=== PATIENT | female | born 1940 | race Hispanic/Latino ===

== ENCOUNTER 2017-05-03 12:29 | Emergency (ER) | payer MEDICARE, MEDICAID ==
[~2017-05-03] VITALS: Ht 142.2 cm; Wt 64.0 kg
[~2017-05-03 12:29] MED LIST: ACETAMIN500 M1; ACTOS30 MG PO; CIPROFLOXACN500 MG PO; COREG6.25 MG PO; DIABETA5 MG PO; FLAGYL500 MG PO; GLYBURIDE/METFO1 TAB PO; GLYBURIDE5 M1 PO; HYDROCHLORO25 MG/TAB PO; LEVOTHYROXIN100 MCG PO; LISINOPRIL10 MG PO; LISINOPRIL20 M1 PO; LORTAB 5 OR; LORTAB 5/3255 MG PO; LORTAB 7.5; LORTAB 7.5 PO; METFORMIN HCL1000 MG PO; METFORMIN1000 MG PO; METRONIDAZOL500 MG PO; NAPROSYN500 MG PO; PENICILLN VK500 MG OR; PRILOSEC40 MG PO; SIMVASTATIN20 MG PO; SIMVASTATIN40 MG PO; TUMS500 MG; ZESTRIL/PRI20 MG/TAB PO
[2017-05-03 13:36] LABS: HEMATOCRIT 25.3 % (37.0-47.0); HEMOGLOBIN 8.6 g/dl (12.0-16.0); IMMATURE GRANULOCYTES 0.4 % (0.0-1.0); MEAN CELL VOLUME 87.5 fL CALC (80.0-100.0); MEAN CORPUSCULAR HGB 29.8 pG CALC (26.0-32.0); NEUT# 7.07 thou/uL (2.00-7.15); RED BLOOD COUNT 2.89 mill/uL (4.20-5.60); RED CELL DISTRI WIDTH 12.9 % (11.5-15.5)
[2017-05-03] MEDS ORDERED: MIRTAZAPINE15 MG PO (13:42)
[2017-05-03] MEDS ORDERED: MELATONIN10 M3 PO (13:43)
[2017-05-03] MEDS ORDERED: FOLIC ACID1 MG PO (13:44)
[2017-05-03] MEDS ORDERED: LEVOTHYROXIN75 MCG PO (13:45)
[2017-05-03] MEDS ORDERED: FERR SULFATE325 MG PO (13:46)
[2017-05-03] MEDS ORDERED: HYDRALAZINE25 MG PO (13:48)
[2017-05-03] MEDS ORDERED: GLUCOTROL10 MG PO (13:49)
[2017-05-03] MEDS ORDERED: OMEPRAZOLE10 MG PO (13:50)
[2017-05-03 13:56] LABS: ALBUMIN 3.7 g/dL (3.2-5.0); BILIRUBIN, TOTAL 0.4 mg/dL (0.0-1.4); CALCIUM 8.7 mg/dL (8.4-10.2); CREATININE 1.6 mg/dL (0.5-1.0); POTASSIUM 3.9 mmol/l (3.5-5.1); TOTAL PROTEIN 7.4 g/dL (6.3-8.2)
[2017-05-03 14:29] LABS: URINE BILIRUBIN - DIPSTICK NEGATIVE (NEGATIVE); URINE BLOOD DIPSTICK NEGATIVE (NEGATIVE); URINE CLARITY CLEAR; URINE COLOR YELLOW; URINE GLUCOSE - DIPSTICK NEGATIVE (NEGATIVE); URINE KETONE NEGATIVE (NEGATIVE); URINE LEUK ESTERASE TRACE (NEGATIVE); URINE NITRITE - DIPSTICK NEGATIVE (Negative); URINE PH 5.5 (4.5-8.0); URINE PROTEIN - DIPSTICK NEGATIVE (NEG-TRACE); URINE SPECIFIC GRAVITY <=1.005; URINE UROBILINOGEN - DIPSTICK 0.2 E.U./dL (0.2)
[2017-05-03 14:36] VITALS: BP 106/60
== END 2017-05-03 14:47 | disposition home or self-care (01) ==
LOC: ED 12:29
PROVIDERS: Family Medicine
DX: R53.1 Weakness (principal); R50.9 Fever, unspecified; I10 Essential (primary) hypertension; R51 Headache; E11.9 Type 2 diabetes mellitus without complications; Z79.84 Long term (current) use of oral hypoglycemic drugs

== ENCOUNTER 2019-03-15 20:59 | Emergency (ER) | payer MEDICARE, MEDICAID ==
[~2019-03-15] VITALS: Ht 142.2 cm; Wt 74.0 kg
[~2019-03-15 20:59] MED LIST changes: +FERR SULFATE325 MG PO; +FOLIC ACID1 MG PO; +GLUCOTROL10 MG PO; +HYDRALAZINE25 MG PO; +LEVOTHYROXIN75 MCG PO; +MELATONIN10 M3 PO; +MIRTAZAPINE15 MG PO; +OMEPRAZOLE10 MG PO
[2019-03-15 21:06] VITALS: BP 206/110
== END 2019-03-15 21:51 | disposition home or self-care (01) ==
LOC: ED 20:59
DX: L97.219 Non-pressure chronic ulcer of right calf with unspecified severity (principal); I10 Essential (primary) hypertension; E11.9 Type 2 diabetes mellitus without complications

== ENCOUNTER 2019-11-13 | Emergency (ER) | payer MEDICARE, MEDICAID ==
[2019-11-13] MEDS ORDERED: LIPITOR40 M1 PO (15:21)
[2019-11-13] MEDS ORDERED: FLUOXETINE20 MG PO (15:22)
[2019-11-13 15:24] LABS: HEMATOCRIT 31.9 % (37.0-47.0); HEMOGLOBIN 10.5 g/dl (12.0-16.0); IMMATURE GRANULOCYTES 0.6 % (0.0-5.0); MEAN CELL VOLUME 92.2 fL CALC (80.0-100.0); MEAN CORPUSCULAR HGB 30.3 pG CALC (26.0-32.0); MEAN CORPUSCULAR HGB CONC 32.9 g/L CALC (32.0-36.0); NEUT# 7.62 thou/uL (2.00-7.15); RED BLOOD COUNT 3.46 mill/uL (4.20-5.60); RED CELL DISTRI WIDTH 14.3 % (11.5-15.5)
[2019-11-13 15:48] LABS: ALBUMIN 3.6 g/dL (3.2-5.0); ALKALINE PHOSPHATASE 231 u/l (38-126); ANION GAP 11 (6-22 (CALC)); BILIRUBIN, TOTAL 0.5 mg/dL (0.0-1.4); BUN 46 mg/dL (8-23); BUN/CREATININE RATIO 34 (12-20 (CALC)); CARBON DIOXIDE 22 mmol/l (22-30); CHLORIDE 106 mmol/l (95-108); CREATININE 1.4 mg/dL (0.5-1.0); GFR 36 ML/MIN (>=60 (CALC)); GFR FOR AFR.AMER. 44 ML/MIN (>=60 (CALC)); SGOT/AST 22 u/l (9-36); SODIUM 134 mmol/l (137-146)
== END 2019-11-13 17:30 | disposition left against medical advice (07) ==
PROVIDERS: Emergency Medicine
DX: S80.02XA Contusion of left knee, initial encounter (principal); S51.011A Laceration without foreign body of right elbow, initial encounter; R42 Dizziness and giddiness; E86.0 Dehydration; I10 Essential (primary) hypertension; E11.9 Type 2 diabetes mellitus without complications; Y92.009 Unspecified place in unspecified non-institutional (private) residence as the place of occurrence of the external cause; W18.30XA Fall on same level, unspecified, initial encounter; Z79.84 Long term (current) use of oral hypoglycemic drugs; Z91.19 Patient's noncompliance with other medical treatment and regimen

== ENCOUNTER 2022-12-21 19:48 | Emergency (ER) | payer MEDICARE, OTHER ==
[2022-12-21] VITALS (12 sets, daily range): BP systolic 151–172; BP diastolic 58–74
[~2022-12-21] VITALS: Ht 142.2 cm; Wt 55.2 kg
[~2022-12-21 19:48] MED LIST changes: +FLUOXETINE20 MG PO; +LIPITOR40 M1 PO
[2022-12-21 22:06] LABS: URINE BILIRUBIN - DIPSTICK NEGATIVE (NEGATIVE); URINE BLOOD DIPSTICK TRACE-INTACT (NEGATIVE); URINE COLOR YELLOW; URINE GLUCOSE - DIPSTICK NEGATIVE (NEGATIVE); URINE KETONE NEGATIVE (NEGATIVE); URINE LEUK ESTERASE SMALL (NEGATIVE); URINE NITRITE - DIPSTICK NEGATIVE (Negative); URINE PH 6.5 (4.5-8.0); URINE PROTEIN - DIPSTICK 100 mg/dL (NEG-TRACE); URINE SPECIFIC GRAVITY 1.015; URINE UROBILINOGEN - DIPSTICK 0.2 E.U./dL (0.2)
[2022-12-21 22:13] LABS: URINE RBC 0-2 RBC/hpf (0-5); URINE SQUAMOUS EPITHELIAL CELL FEW EPI/hpf (0-FEW)
[2022-12-22] MEDS ORDERED: KEFLEX500 MG PO (01:32)
[2022-12-22] MEDS ORDERED: CYCLOBENZAPRINE10 MG PO (01:32)
[2022-12-22] MEDS ORDERED: NAPROXEN500 MG PO (01:32)
[2022-12-22 02:00] VITALS: BP 169/74
== END 2022-12-22 02:08 | disposition home or self-care (01) ==
LOC: ED 19:48
PROVIDERS: Emergency Medicine
DX: S33.5XXA Sprain of ligaments of lumbar spine, initial encounter (principal); N39.0 Urinary tract infection, site not specified; I10 Essential (primary) hypertension; E11.9 Type 2 diabetes mellitus without complications; E78.00 Pure hypercholesterolemia, unspecified; Z79.84 Long term (current) use of oral hypoglycemic drugs; X58.XXXA Exposure to other specified factors, initial encounter

== ENCOUNTER 2023-02-10 12:20 | Emergency (ER) | payer MEDICARE, OTHER ==
[~2023-02-10] VITALS: Ht 142.2 cm; Wt 56.5 kg
[~2023-02-10 12:20] MED LIST changes: +CYCLOBENZAPRINE10 MG PO; +KEFLEX500 MG PO; +NAPROXEN500 MG PO
[2023-02-10 12:47] VITALS: BP 192/75
[2023-02-10 13:01] VITALS: BP 157/69
[2023-02-10] MEDS ORDERED: AMLODIPINE BESYL5 MG PO (13:09)
[2023-02-10] MEDS ORDERED: OMEPRAZOLE20 MG PO (13:09)
[2023-02-10] MEDS ORDERED: LISINOPRIL20 M1 PO (13:10)
[2023-02-10] MEDS ORDERED: COREG3.125 MG PO (13:11)
[2023-02-10 13:15] VITALS: BP 167/66
[2023-02-10 13:30] VITALS: BP 161/60
[2023-02-10 13:45] VITALS: BP 166/73
[2023-02-10] MEDS ORDERED: ALL DAY10 MG PO (13:55)
[2023-02-10] MEDS ORDERED: PREDNISONE50 MG PO (13:55)
[2023-02-10] MEDS ORDERED: PERMETHRIN5 % EX (13:55)
[2023-02-10 14:19] VITALS: BP 166/73
== END 2023-02-10 14:36 | disposition home or self-care (01) ==
LOC: ED 12:20
DX: L29.9 Pruritus, unspecified (principal); I10 Essential (primary) hypertension; E11.9 Type 2 diabetes mellitus without complications; E78.00 Pure hypercholesterolemia, unspecified; Z79.84 Long term (current) use of oral hypoglycemic drugs

== ENCOUNTER 2023-05-30 17:49 | Inpatient (IN) | payer MEDICARE, OTHER ==
[2023-05-30] VITALS (11 sets, daily range): BP systolic 97–120; BP diastolic 52–65
[~2023-05-30] VITALS: Ht 142.2 cm; Wt 51.6 kg
[~2023-05-30 17:49] MED LIST changes: +ALL DAY10 MG PO; +AMLODIPINE BESYL5 MG PO; +COREG3.125 MG PO; +OMEPRAZOLE20 MG PO; +PERMETHRIN5 % EX; +PREDNISONE50 MG PO
--- NOTE | 2023-05-30 17:49 | NUR ---
pt to room via wc. daughter at bedside as historian
--- NOTE | 2023-05-30 18:44 | NUR ---
patient resting in bed, educated on cont wait time. daughter at bedside, ,she stated understanding
--- NOTE | 2023-05-30 18:45 | NUR ---
PT ARRIVED WITH A SKIN TEAR ON HER LEFT ELBOW REGION. PT HAD TEAR COVERED WITH RIPPED [employer] BAG. BAG GOT SATURATED WITH BLOOD FROM IV, SO BAG WAS REMOVED. OFFERED TO CLEAN UP THE WOUND AND APPLY A STERILE DRESSING. PT AND FAMILY REFUSED AND ASKED FOR ME TO LEAVE IT ALONE.
[2023-05-30 18:48] LABS: ALKALINE PHOSPHATASE 137 u/l (38-126); CHLORIDE 102 mmol/l (95-108); LIPASE 113 u/l (23-300); POTASSIUM 4.3 mmol/l (3.5-5.1); SODIUM 128 mmol/l (137-146); TOTAL PROTEIN 5.8 g/dL (6.3-8.2)
[2023-05-30 18:49] LABS: ALBUMIN 2.3 g/dL (3.2-5.0); ANION GAP 18 (6-22 (CALC)); BILIRUBIN, TOTAL 0.8 mg/dL (0.02-1.3); BUN 46 mg/dL (8-23); BUN/CREATININE RATIO 16 (12-20 (CALC)); CARBON DIOXIDE 12 mmol/l (22-30); CREATININE 2.9 mg/dL (0.5-1.0); GFR FOR AFR.AMER. 19 ML/MIN (>=60 (CALC)); GFR OTHER RACES 16 ML/MIN (>=60 (CALC)); SGOT/AST 40 u/l (9-36)
--- NOTE | 2023-05-30 18:54 | NUR ---
REPORT GIVEN TO COMBINE OPERATOR NURSE ELYSIA. CARE IS RELINQUISHED.
[2023-05-30 18:57] LABS: BASO% 0.6 % (0-3); EOS% 3.2 % (0-8); IMMATURE GRANULOCYTES 0.1 % (0.0-5.0); MEAN CORPUSCULAR HGB CONC 34.5 g/dL CAL (32.0-36.0); MONO% 8.4 % (2-13); NEUT# 4.79 thou/uL (2.00-7.15); NEUT% 48.7 % (42-76); RED BLOOD COUNT 2.45 mill/uL (4.20-5.60); RED CELL DISTRI WIDTH 14.8 % (11.5-15.5)
--- NOTE | 2023-05-30 18:57 | NUR ---
report given to filemon
[2023-05-30 19:16] LABS: HEMATOCRIT 20.6 % (37.0-47.0); HEMOGLOBIN 7.1 g/dl (12.0-16.0); MEAN CELL VOLUME 84.1 fL CALC (80.0-100.0)
--- NOTE | 2023-05-30 21:37 | NUR ---
ATTEMPTED TO RESTART IV WITHOUT SUCCESS. CONSENT SIGNED FOR BLOOD.
[2023-05-30] MEDS ORDERED: LISINOPRIL2.5 MG PO (21:45)
[2023-05-30] MEDS ORDERED: ACTOS30 MG PO (21:53)
[2023-05-30] MEDS ORDERED: FUROSEMIDE20 MG PO (21:54)
--- NOTE | 2023-05-30 22:15 | NUR ---
REPORT TO FRANCISCO RODRIGUEZ/MED-SUR[facility]
--- NOTE | 2023-05-30 22:21 | NUR ---
TO FLOOR VIA STRETCHER.
--- NOTE | 2023-05-30 23:00 | NUR ---
PATIENT RESTING IN BED WITH DAUGHTER AT BEDSIDE. PATIENT IS KAZAKH SPEAKING ONLY AND DAUGHTER RUSS IS HERE TO TRANSLATE AND STAY WITH HER MOTHER NOW. #1 UNIT OF PRBC'S HAS BEEN HUNG. UNIT # [id number] VIA LEFT FOREARM SITE. SITE IS HEALTHY WITH GOOD BLOOD RETURN PRIOR TO STARTING THE TRANSFUSION. PATIENT WAS EDUCATED THROUGH TRANSLATION REGUARDING POSSIBLE ADVERSE REACTION-FEVER, CHILLS, SHAKES, HEADACHE AND OR BACK PAIN. WILL MONITOR AT BEDSIDE PER PROTOCOL.
[2023-05-31] VITALS (7 sets, daily range): BP systolic 105–122; BP diastolic 51–70
--- NOTE | 2023-05-31 01:48 | NUR ---
PATIENT RESTING IN BED WITH EYES CLOSED. RESPS ARE EVEN AND UNLABORED. BLOOD TRANSFUSION IS FINISHED WITHOUT ANY ADVERSE REACTIONS. IVF NS HUNG AND INFUSING AT 100CC/HR VIA LEFT FOREARM SITE. SITE REMAINS HEALTHY AT THIS TIME. DAUGHTER REMAINS AT BEDSIDE WITH HER MOTHER, TELE MONITOR IN PLACE. CALL LIGHT IN REACH. WILL CONT TO MONITOR.
--- NOTE | 2023-05-31 04:26 | NUR ---
PATIENT RESTING ION BED WITH HOB SLIGHTLY ELEVATED-EYES ARE CLOSED AND RESPS ARE EVEN AND UNLABORED. TELE MONITOR IN PLACE WITH LAST READING SR-69. IVF NS PATENT AND INFUISING VIA LEFT FOREARM SITE. DAUGHTER RESTING ON RECLINER NEXT TO MOTHER. CALL LIGHT IN REACH. WILL CONT TO MONITOR.
--- NOTE | 2023-05-31 05:46 | NUR ---
PATIENT RESTING IN BED-NO URINE OUTPUT FROM PUREWICK. NO LEAKAGE NOTED. BLADDER SCAN WAS DONE AND WAS ONLY 76ML AT THIS TIME. PUREWICK REMAINS IN PLACE. IVF NS PATENT AND INFUISING VIA LEFT FOREARM SITE AT 100CC/HR. TELE MONITOR IN PLACE. DAUGHTER REMAINS AT BEDSIDE ON RECLINER. CALL LIGHT IN REACH. WILL CONT TO MONITOR.
--- NOTE | 2023-05-31 08:00 | NUR ---
PT IN BED WITH HOB, EATING BREAKFAST. PT KYRGYZ SPEAKING ONLY, WITH DAUGHTER AT BEDSIDE TO TRANSLATE. PT IS ALERT AND OREINTED WITH CONFUSION AT TIMES. PT HAS TELE ON WITH ALL LEADS ATTACHED. PT LUNGS DIMINISHED. ABD SOFT WITH ACTIVE BS. PT HAS PUREWICK IN PLACE. PT HAS CALL LIGHT WITHIN REACH AND ALL SAFETY MEASURES IN PLACE.
[2023-05-31 08:22] LABS: ALBUMIN 2.3 g/dL (3.2-5.0); ALKALINE PHOSPHATASE 130 u/l (38-126); ANION GAP 17 (6-22 (CALC)); BUN 43 mg/dL (8-23); BUN/CREATININE RATIO 16 (12-20 (CALC)); CALCULATED LDLCHOLESTEROL 64 mg/dL (62-129 (CALC)); CARBON DIOXIDE 10 mmol/l (22-30); CHLORIDE 106 mmol/l (95-108); CHOLESTEROL HDL RATIO 4.8 (<4.4 (CALC)); CREATININE 2.7 mg/dL (0.5-1.0); GFR FOR AFR.AMER. 21 ML/MIN (>=60 (CALC)); GFR OTHER RACES 17 ML/MIN (>=60 (CALC)); HDL CHOLESTEROL 28 mg/dL (39.0-59.0); POTASSIUM 4.3 mmol/l (3.5-5.1); SGOT/AST 44 u/l (9-36); SODIUM 128 mmol/l (137-146); TOTAL PROTEIN 5.7 g/dL (6.3-8.2); TOTAL TRIGLYCERIDES 214 mg/dl (0-149); VLDL CHOLESTROL 43 mg/dl (0-48 (CALC))
[2023-05-31 08:53] LABS: MAGNESIUM 1.2 mg/dL (1.6-2.3); TOTAL CHOLESTEROL 135 mg/dl (0-199)
[2023-05-31 09:11] LABS: HEMATOCRIT 25.8 % (37.0-47.0); HEMOGLOBIN 8.8 g/dl (12.0-16.0); MEAN CELL VOLUME 87.2 fL CALC (80.0-100.0); MEAN CORPUSCULAR HGB 29.7 pG CALC (26.0-32.0); MEAN CORPUSCULAR HGB CONC 34.1 g/dL CAL (32.0-36.0); RED BLOOD COUNT 2.96 mill/uL (4.20-5.60); RED CELL DISTRI WIDTH 15.3 % (11.5-15.5)
--- NOTE | 2023-05-31 12:54 | NUR ---
PT IN BED WITH HON EDU , AWA DE LA ROSAGRAYSON WITH SOME ASSISTANCE FROM HER DAUGHTER. PT HAS NO C/O PAIN AT THIS TIME. PT HAS CALL LIGHT WITHIN REACH AND ALL SAFETY MEASURES IN PLACE AT THIS TIME.
--- NOTE | 2023-05-31 18:03 | NUR ---
PT IN BED, NO CHANGE IN STATUS. PT HAS NO URINE OUT IN PUREWICK. BLADDER SCAN DONE ONLY 34 ML NOTED ON SCAN, DEREK IS AWARE. PT CONTINUES TO HACE NS @ 100 ML/HR INFUSING.
--- NOTE | 2023-05-31 20:44 | NUR ---
BEDSIDE REPORT RECIEVED. PT A/OX3 WITH CONFUSION.NIUEAN SPEAKING ONLY. RESPIRATIONS EVEN AND UNLABORED ON ROOM AIR. LUNG SOUNDS CLEAR HEART RHYTHM NORMAL WITH TELE IN PLACE. BOWEL SOUNDS ACTIVE. #20G LFA INFUSING WITH IVF PER ORDER. PUREWHICK IN PLACE, MINIMAL URINE AT THIS TIME. BRUISING NOTED THROUGHOUT BODY. RASH NOTE IN GRACIA AREA, PERICARE PROVIDED. Q2H TURNING ENFORCED. PT DENIES OF ANY NEEDS AT THIS TIME. ALL SAFETY PRECAUTIONS ARE IN PLACE WITH CALL LIGHT IN REACH.
[2023-06-01] VITALS (7 sets, daily range): BP systolic 101–143; BP diastolic 50–88
--- NOTE | 2023-06-01 00:15 | NUR ---
PT SLEEPING IN SEMI FOWLERS POSITION. RESPIRATIONS EVEN AND UNLABORED ON ROOM AIR. TELE MOITORING IN PLACE. IVF INFUSING PER ORDER. NO S/S OF DISTRESS. ALL SAFETY PRECAUTIONS ARE IN PLACE WITH CALL LIGHT IN REACH
[2023-06-01 01:31] LABS: URINE BLOOD DIPSTICK Moderate (NEGATIVE); URINE KETONE 15 mg/dL (NEGATIVE); URINE NITRITE - DIPSTICK Negative (Negative); URINE PH 5.5 (4.5-8.0); URINE PROTEIN - DIPSTICK 100 mg/dL (NEG-TRACE); URINE SPECIFIC GRAVITY 1.025
[2023-06-01 01:44] LABS: URINE COLOR Yellow; URINE GLUCOSE - DIPSTICK Negative (NEGATIVE); URINE LEUK ESTERASE Large (NEGATIVE); URINE RBC 50-100 RBC/hpf (0-5); URINE WBC >100 WBC/hpf (0-5)
[2023-06-01 01:45] LABS: URINE AMORPH SEDIMENT MODERATE hpf (NONE-FEW); URINE BACTERIA MANY hpf; URINE EPITHELIAL CELLS MODERATE EPI/hpf (0-FEW)
--- NOTE | 2023-06-01 04:13 | NUR ---
PT SLEEPING IN SEMI FOWLERS POSITION. RESPIRATIONS EVEN AND UNLABORED ON ROOM AIR. TELE MONITORING IN PLACE. IVF INFUSING PER ORDER, SITE PATENT. MINIMAL URINE OUTPUT NOTED FROM SHIFT, BLADDER SCAN TO BE COMPLETED. NO S/S OF DISTRESS. ALL SAFETY PRECAUTIONS ARE IN PLACE WITH CALL LIGHT IN REACH.
--- NOTE | 2023-06-01 05:35 | NUR ---
MINIMAL URINE NOTED THROUGHOUT SHIFT. BLADDER SCAN COMPLETE, 135. IRIS HOLLY AT BEDSIDE TO TRANSLATE. PT STATES THAT SHE DOES NOT FEEL LIKE SHE HAS TO URINATE.
[2023-06-01 06:48] LABS: HEMATOCRIT 24.7 % (37.0-47.0); HEMOGLOBIN 8.7 g/dl (12.0-16.0); MEAN CELL VOLUME 83.4 fL CALC (80.0-100.0); MEAN CORPUSCULAR HGB 29.4 pG CALC (26.0-32.0); MEAN CORPUSCULAR HGB CONC 35.2 g/dL CAL (32.0-36.0); RED BLOOD COUNT 2.96 mill/uL (4.20-5.60); RED CELL DISTRI WIDTH 15.3 % (11.5-15.5)
[2023-06-01 07:09] LABS: INTERNATIONAL NORMALIZED RATIO 1.2 RATIO (0.7-1.3); PROTHROMBIN TIME 11.8 SECONDS (9.0-12.5)
[2023-06-01 07:13] LABS: ALBUMIN 1.9 g/dL (3.2-5.0); BILIRUBIN, TOTAL 0.8 mg/dL (0.02-1.3); CREATININE 2.3 mg/dL (0.5-1.0); POTASSIUM 3.9 mmol/l (3.5-5.1); TOTAL PROTEIN 4.9 g/dL (6.3-8.2)
--- NOTE | 2023-06-01 09:18 | NUR ---
PATIENT RESTING IN BED. NO NEW CONCERNS AT THIS TIME. ASSESSMENT DONE. PLAN OF CARE ONGOING.
--- NOTE | 2023-06-01 12:00 | NUR ---
PATIENT RESTING FAMILY AT BEDSIDE. ROUNDED WITH MD. NO NEW CONCERNS. PLAN OF CARE ONGOING.
--- NOTE | 2023-06-01 17:00 | NUR ---
MOULTON PLACED PER MD VERBAL ORDER. PATIENT HAS ONLY PUT OUT 75ML OF URINE SINCE THIS MORNING. BLADDER SCAN SHOWED >300ML. FAMILY AT BEDSIDE. PROCEDURE WAS DONE USING STERILE TECHNIQUE. URINE IS YELLOW CLOUDY WITH SEDIMENT.
--- NOTE | 2023-06-01 21:00 | NUR ---
PT RESTING IN BED, NO SIGNS OF DISTRESS NOTED, RESP EVEN AND UNLABORED. PT ALERT AND ORIENTED X2, DISCUSSED POC, VERBALIZED UNDERSTANDING. NOTED PT HAS EDEMA TO BUE, ELEVATED ON PILLOWS. PT HAS MOULTON DRAINING TO GRAVITY, MINIMAL OUTPUT, MD AWARE. IVF INCREASED TO 150CC/HR. MD CALLED AND ORDER CLARIFIED FOR MAGNESIUM. INFORMED TO HOLD MAGNESIUM INFUSION UNTIL REPEAT LABS IN AM. DISCUSSED WITH PT, VERBALIZED UNDERSTANDING. HEELS ELEVATED ON PILLOWS, HEEL PROTECTORS APPLIED. ASSESSMENT REVIEW COMPLETED, CALL LIGHT IN REACH,CONTINUE TO MONITOR.
--- NOTE | 2023-06-02 | NUR ---
PT RESTING IN BED WITH EYES CLOSED, NO SIGNS OF DISTRESS NOTED, RESP EVEN AND UNLABORED. CALL LIGHT IN REACH,CONTINUE TO MONITOR.
--- NOTE | 2023-06-02 04:03 | NUR ---
PT RESTING IN BED WITH EYES CLOSED, NO SIGNS OF DISTRESS NOTED, RESP EVEN AND UNLABORED. CALL LIGHT IN REACH,CONTINUE TO MONITOR.
[2023-06-02 04:20] VITALS: BP 139/67
--- NOTE | 2023-06-02 05:13 | NUR ---
DAILY WT OBTAINED VIA NAZ LIFT, PT TOLERATED WELL. REPOSITIONED IN BED WITH PILLOWS. CALL LIGHT IN REACH,CONTINUE TO MONITOR.
[2023-06-02 05:42] LABS: ALBUMIN 1.8 g/dL (3.2-5.0); BILIRUBIN, TOTAL 0.6 mg/dL (0.02-1.3); CREATININE 2.2 mg/dL (0.5-1.0); POTASSIUM 3.6 mmol/l (3.5-5.1)
[2023-06-02 05:44] LABS: MAGNESIUM 2.2 mg/dL (1.6-2.3)
[2023-06-02 06:10] VITALS: BP 112/52
--- NOTE | 2023-06-02 07:41 | NUR ---
BEDSIDE SHIFT REPORT, PT AWAKE AND ALERT, GROANING WITH MOVEMENTS, GROSSLY WEAK, LIFTED OOB TO CHAIR BY 3 STAFF MEMBERS, TELE MONITOR IN PLACE, MOULTON CATHETER IN PLACE WITH YELLOW CONCENTRATED, SEDIMENTED URINE, CALL NEVAREZ PLACED IN REACH.
[2023-06-02 09:22] VITALS: BP 102/51
--- NOTE | 2023-06-02 10:19 | NUR ---
PT SITTING UP IN RECLINER, DAUGHTERS HERE AND REQUESTING TO HAVE PT PUT BACK IN BED CHAIR IS TOO HARD FOR HER AND HER BOTTOM HURTS, STAFF BUSY NOW BUT FAMILY WANTS HER TO BE IN BED NOW, NURSE ASKS FAMILY IF THEY WILL ASSIST TO GET HER IN BEB BUT THEY REFUSED STATING THEY WILL WAIT. PT WAS LIFTED BACK IN BED WITH STAFF SOON THERE WAS AVAILABLE STAFF. FAMILY REQUESTED IMMEDIATELY TO HAVE PT POSITION ON RIGHT SIDE SHE WAS POSITIONED ON LEFT SIDE, NURSE EDUCATED FAMILY ON NURSING CARE FOR BED-BOUND PTS AND ADVISED WE WILL REPOSITION HE ON LEFT SIDE AFTER 1-2 HOURS AND THEY STATED UNDERSTANDING.
[2023-06-02 11:21] VITALS: BP 115/60
--- NOTE | 2023-06-02 12:00 | NUR ---
REPOSITIONED IN SUPINE AND SET UP FOR MEAL, FAMILY AT BEDSIDE, ALL NEEDS ADDRESSED.
--- NOTE | 2023-06-02 13:37 | NUR ---
CONTACTED DR HALL'S OFFICE IN REFERENCE TO A PHYSICIAN CONSULT. I SPOKE WITH DECEMBER (ANSWERING SERVICE) AT 1337 HRS.
[2023-06-02 14:10] VITALS: BP 100/47
--- NOTE | 2023-06-02 16:00 | NUR ---
FAMILY MEMBER (GRAND-DAUGHTER) C/O STAFF WAS ROUGH WITH TRANSFER WITH PT AND NEEDS TO KNOW WHETHER PT WILL BE TAKEN CARE OF HERE. REASSURED STAFF HERE ARE CARING AND HAVE PATIENTS INTEREST AT HEART AND WOULD NOT NEGLIGENTLY CAUSE THE PT HARM. STAFF REPORTED THAT DURING TANSFER FROM RECLINER TO BED FAMILY MEMBER (DAUGHTER) GOT IN THE WAY AND CAUSED TEAR TO RIGHT LOWER LEG. PT'S SKIN IS EXTREMELY THIN AND FRAGILE TO THE POINT IT'S ALMOST TRANSPARENT DUE TO EXCESSIVE EDEMA.
[2023-06-02 18:42] LABS: HEMATOCRIT 25.9 % (37.0-47.0); HEMOGLOBIN 8.7 g/dl (12.0-16.0); MEAN CELL VOLUME 86.6 fL CALC (80.0-100.0); MEAN CORPUSCULAR HGB 29.1 pG CALC (26.0-32.0); MEAN CORPUSCULAR HGB CONC 33.6 g/dL CAL (32.0-36.0); RED BLOOD COUNT 2.99 mill/uL (4.20-5.60)
--- NOTE | 2023-06-02 20:00 | NUR ---
PATIENT RESTING IN BED AT THIS TIME-AWAKE AND ALERT-DAUGHTER AT BEDSIDE AND PATIENT IS FEELING BETTER THAN WHEN SHE CAME IN. PATIENT IS ABLE TO TAKE HER MEDICATIONS WITHOUT ANY DIFFICULTY. SWALLOWS WITHOUT ANY DIFFICULTY. TELE MONITOR IN PLACE. IV SITE TO LEFT FOREARM INTACT. MOULTON CATH PATENT AND DRAINIING CLOUDY YELLOW URINE. PATIENT WITH GENERALIZED SWELLING. TO ALL EXTEMITIES. BED ALARM IN PLACE FOR PATIENT SAFETY. CALL LIGHT IN REACH. WILL CONT TO MONITOR.
[2023-06-02 20:05] VITALS: BP 97/43
[2023-06-03] VITALS (7 sets, daily range): BP systolic 97–111; BP diastolic 44–56
--- NOTE | 2023-06-03 00:50 | NUR ---
PATIENT RESTING IN BED WITH EYES CLOSED. RESPS ARE EVEN AND UNLABORED. TELE MONITOR IN PLACE. MOULTON PATENT AND DRAINING CLOUDY YELLOW URINE. SALINE LOCK TO LEFT FOREARM. BED ALARM IN PLACE FOR PATIENT SAFETY. CALL LIGHT IN REACH. WILL CONT TO MONITOR.
--- NOTE | 2023-06-03 04:35 | NUR ---
PATIENT RESTING IN BED WITH EYES CLOSED. RESPS ARE EVEN AND UNLABORED. TELE MONITOR IN PLACE. MOULTON PATENT AND DRAINING CLOUDY YELLOW URINE. SALINE LOCK TO LEFT FOREARM SITE. CALL LIGHTIN REACH. WILL CONT TO MONITOR.
--- NOTE | 2023-06-03 07:10 | NUR ---
SHIFT CHANGE REPORT AT BEDSIDE, PT RESTING IN BED WITH EYES CLOSED, RESPONDS TO VERBAL STIMULI, DENIES PAIN, TELE MONITOR IN PLACE, MOULTON CATHETER IN PLACE WITH CLOUDY SEDIMENTED URINE, CALL NEVAREZ IN REACH AND BED LOCKED IN LOWEST POSITION.
--- NOTE | 2023-06-03 10:12 | NUR ---
9 CM SKIN TEAR OCCURRED TO LEFT LOWER LEG YESTERDAY, OLD DRESSING WITH MODERATE AMT SEROSANGUINOUS DRAINAGE REMOVED, WOUND CLEANED WITH 0.9 NS, NON-ADHERENT DRESSING APPLIED AND SECURED WITH KERLIX.
[2023-06-03 11:33] LABS: BASO% 0.5 % (0-3); EOS% 4.5 % (0-8); HEMATOCRIT 25.3 % (37.0-47.0); HEMOGLOBIN 8.7 g/dl (12.0-16.0); IMMATURE GRANULOCYTES 0.3 % (0.0-5.0); LYMPH% 29.1 % (15-41); MEAN CELL VOLUME 85.2 fL CALC (80.0-100.0); MEAN CORPUSCULAR HGB 29.3 pG CALC (26.0-32.0); MEAN CORPUSCULAR HGB CONC 34.4 g/dL CAL (32.0-36.0); MONO% 8.7 % (2-13); NEUT# 5.76 thou/uL (2.00-7.15); NEUT% 56.9 % (42-76); RED BLOOD COUNT 2.97 mill/uL (4.20-5.60); RED CELL DISTRI WIDTH 15.8 % (11.5-15.5)
[2023-06-03 11:44] LABS: ALBUMIN 1.8 g/dL (3.2-5.0); BILIRUBIN, TOTAL 0.7 mg/dL (0.02-1.3); BILIRUBIN, TOTAL 0.8 mg/dL (0.02-1.3); CREATININE 2.1 mg/dL (0.5-1.0); CREATININE 2.2 mg/dL (0.5-1.0); POTASSIUM 3.8 mmol/l (3.5-5.1); TOTAL PROTEIN 4.8 g/dL (6.3-8.2)
[2023-06-03 11:52] LABS: INTERNATIONAL NORMALIZED RATIO 1.3 RATIO (0.7-1.3)
--- NOTE | 2023-06-03 15:49 | NUR ---
MOULTON REMOVED PER MD'S ORDER, PT TOLERATED WELL.
[2023-06-03] MEDS ORDERED: MIDODRINE5 MG PO (16:40)
[2023-06-03] MEDS ORDERED: SODIUM BICAR650 MG PO (16:42)
[2023-06-03] MEDS ORDERED: OMNICEF300 M1 PO (16:43)
[2023-06-03] MEDS ORDERED: NYSTOP100000 UNI TOP (16:43)
[2023-06-03] MEDS ORDERED: TAMSULOSIN HCL0.4 MG PO (16:44)
--- NOTE | 2023-06-03 20:18 | NUR ---
Discharge instructions given. Patient verbalizes understanding of same. Discharged in stable condition via Wheelchair to Home with family. All belongings sent with pt.
== END 2023-06-03 20:00 | disposition home or self-care (01) | DRG 683 ==
LOC: ED 17:49 → ED-I 19:43 → ED 20:39 → MS2 20:40
PROVIDERS: Family Medicine; ADMIT Internal Medicine; ATTEND Student in an Organized Health Care Education/Training Program
PROC: 30233N1 Transfusion of Nonautologous Red Blood Cells into Peripheral Vein, Percutaneous Approach (ICD-10-PCS; principal; 2023-05-30)
PROC: 0T9B70Z Drainage of Bladder with Drainage Device, Via Natural or Artificial Opening (ICD-10-PCS; 2023-06-01)
DX: N17.9 Acute kidney failure, unspecified (principal); D68.4 Acquired coagulation factor deficiency; E87.1 Hypo-osmolality and hyponatremia; R18.8 Other ascites; N39.0 Urinary tract infection, site not specified; E87.20 Acidosis, unspecified; E86.0 Dehydration; I12.9 Hypertensive chronic kidney disease with stage 1 through stage 4 chronic kidney disease, or unspecified chronic kidney disease; E11.22 Type 2 diabetes mellitus with diabetic chronic kidney disease; N18.4 Chronic kidney disease, stage 4 (severe); D63.1 Anemia in chronic kidney disease; E86.9 Volume depletion, unspecified; K74.60 Unspecified cirrhosis of liver; I95.9 Hypotension, unspecified; E83.42 Hypomagnesemia; R33.9 Retention of urine, unspecified; E88.09 Other disorders of plasma-protein metabolism, not elsewhere classified; E03.9 Hypothyroidism, unspecified; E78.00 Pure hypercholesterolemia, unspecified; D69.59 Other secondary thrombocytopenia; S31.104A Unspecified open wound of abdominal wall, left lower quadrant without penetration into peritoneal cavity, initial encounter; X58.XXXA Exposure to other specified factors, initial encounter; Z20.822 Contact with and (suspected) exposure to COVID-19
CPT/HCPCS: J3475; P9016; Q5106 EC; S0164

== ENCOUNTER 2023-06-08 23:31 | Inpatient (IN) | payer MEDICARE, OTHER ==
[~2023-06-08] VITALS: Ht 142.2 cm; Wt 57.0 kg
[~2023-06-08 23:31] MED LIST changes: +FUROSEMIDE20 MG PO; +LISINOPRIL2.5 MG PO; +MIDODRINE5 MG PO; +NYSTOP100000 UNI TOP; +OMNICEF300 M1 PO; +SODIUM BICAR650 MG PO; +TAMSULOSIN HCL0.4 MG PO
[2023-06-08 23:35] VITALS: BP 125/64
[2023-06-08 23:45] VITALS: BP 110/60
[2023-06-08] MEDS ORDERED: MEGESTROL AC PO (23:48)
[2023-06-09] VITALS (7 sets, daily range): BP systolic 120–135; BP diastolic 25–68
[2023-06-09 00:28] LABS: BASO% 0.2 % (0-3); EOS% 3.6 % (0-8); HEMATOCRIT 25.7 % (37.0-47.0); HEMOGLOBIN 8.7 g/dl (12.0-16.0); IMMATURE GRANULOCYTES 0.4 % (0.0-5.0); LYMPH% 21.8 % (15-41); MEAN CELL VOLUME 85.4 fL CALC (80.0-100.0); MEAN CORPUSCULAR HGB 28.9 pG CALC (26.0-32.0); MEAN CORPUSCULAR HGB CONC 33.9 g/dL CAL (32.0-36.0); NEUT# 8.85 thou/uL (2.00-7.15); RED BLOOD COUNT 3.01 mill/uL (4.20-5.60)
[2023-06-09 00:37] LABS: URINE BLOOD DIPSTICK Negative (NEGATIVE); URINE COLOR Yellow; URINE GLUCOSE - DIPSTICK Negative (NEGATIVE); URINE KETONE Trace mg/dL (NEGATIVE); URINE LEUK ESTERASE Negative (NEGATIVE); URINE NITRITE - DIPSTICK Negative (Negative); URINE PROTEIN - DIPSTICK 100 mg/dL (NEG-TRACE); URINE SPECIFIC GRAVITY 1.015; URINE UROBILINOGEN - DIPSTICK 0.2 E.U./dL (0.2)
[2023-06-09 00:38] LABS: URINE AMORPH SEDIMENT MANY hpf (NONE-FEW); URINE BACTERIA FEW hpf; URINE CALCIUM OXALATE CRYSTALS FEW lpf; URINE SQUAMOUS EPITHELIAL CELL FEW EPI/hpf (0-FEW)
[2023-06-09 00:47] LABS: ALBUMIN 2.1 g/dL (3.2-5.0); ALKALINE PHOSPHATASE 189 u/l (38-126); ANION GAP 13 (6-22 (CALC)); BILIRUBIN, TOTAL 0.7 mg/dL (0.02-1.3); BUN 31 mg/dL (8-23); BUN/CREATININE RATIO 16 (12-20 (CALC)); CARBON DIOXIDE 12 mmol/l (22-30); CHLORIDE 111 mmol/l (95-108); CREATININE 1.9 mg/dL (0.5-1.0); GFR FOR AFR.AMER. 31 ML/MIN (>=60 (CALC)); GFR OTHER RACES 25 ML/MIN (>=60 (CALC)); INTERNATIONAL NORMALIZED RATIO 1.2 RATIO (0.7-1.3); MAGNESIUM 1.8 mg/dL (1.6-2.3); PROTHROMBIN TIME 11.7 SECONDS (9.0-12.5); SGOT/AST 39 u/l (9-36); SODIUM 132 mmol/l (137-146); TOTAL PROTEIN 5.4 g/dL (6.3-8.2)
[2023-06-09 00:50] LABS: CPK < 20 u/l (30-135)
[2023-06-09 09:26] LABS: BASO% 0.6 % (0-3); EOS% 3.3 % (0-8); HEMATOCRIT 22.7 % (37.0-47.0); HEMOGLOBIN 7.6 g/dl (12.0-16.0); IMMATURE GRANULOCYTES 0.8 % (0.0-5.0); LYMPH% 18.5 % (15-41); MEAN CORPUSCULAR HGB 28.5 pG CALC (26.0-32.0); MEAN CORPUSCULAR HGB CONC 33.5 g/dL CAL (32.0-36.0); MONO% 9.5 % (2-13); NEUT# 8.27 thou/uL (2.00-7.15); NEUT% 67.3 % (42-76); RED BLOOD COUNT 2.67 mill/uL (4.20-5.60); RED CELL DISTRI WIDTH 16.8 % (11.5-15.5)
[2023-06-09 09:36] LABS: ALBUMIN 1.9 g/dL (3.2-5.0); BILIRUBIN, TOTAL 0.6 mg/dL (0.02-1.3); CREATININE 1.9 mg/dL (0.5-1.0); MAGNESIUM 1.8 mg/dL (1.6-2.3); POTASSIUM 3.7 mmol/l (3.5-5.1); TOTAL PROTEIN 4.9 g/dL (6.3-8.2)
[2023-06-10 04:06] VITALS: BP 155/65
[2023-06-10 05:44] LABS: BASO% 0.4 % (0-3); EOS% 5.3 % (0-8); HEMOGLOBIN 7.7 g/dl (12.0-16.0); IMMATURE GRANULOCYTES 0.6 % (0.0-5.0); MEAN CELL VOLUME 84.6 fL CALC (80.0-100.0); MEAN CORPUSCULAR HGB 29.6 pG CALC (26.0-32.0); MONO% 10.1 % (2-13); NEUT# 8.24 thou/uL (2.00-7.15); NEUT% 63.6 % (42-76); RED BLOOD COUNT 2.6 mill/uL (4.20-5.60)
[2023-06-10 05:49] LABS: ALBUMIN 1.7 g/dL (3.2-5.0); ALKALINE PHOSPHATASE 162 u/l (38-126); ANION GAP 10 (6-22 (CALC)); BILIRUBIN, TOTAL 0.5 mg/dL (0.02-1.3); BUN 27 mg/dL (8-23); BUN/CREATININE RATIO 16 (12-20 (CALC)); CARBON DIOXIDE 13 mmol/l (22-30); CHLORIDE 113 mmol/l (95-108); CREATININE 1.8 mg/dL (0.5-1.0); GFR FOR AFR.AMER. 33 ML/MIN (>=60 (CALC)); GFR OTHER RACES 27 ML/MIN (>=60 (CALC)); MAGNESIUM 1.6 mg/dL (1.6-2.3); POTASSIUM 3.5 mmol/l (3.5-5.1); SGOT/AST 32 u/l (9-36); SODIUM 133 mmol/l (137-146); TOTAL PROTEIN 4.7 g/dL (6.3-8.2)
[2023-06-10 06:20] VITALS: BP 118/66
[2023-06-10 15:23] VITALS: BP 127/62
[2023-06-10 19:28] VITALS: BP 115/58
[2023-06-11 04:14] VITALS: BP 128/85
[2023-06-11 06:38] VITALS: BP 113/75
[2023-06-11] MEDS ORDERED: DOXYCYCLINE HY100 MG PO (11:16)
== END 2023-06-11 12:52 | disposition hospice, home (50) | DRG 177 ==
LOC: ED 23:31 → ED-I 06-09 00:45 → ED 06-09 01:14 → MS2 06-09 01:15
PROVIDERS: Family Medicine; ADMIT Student in an Organized Health Care Education/Training Program; ATTEND Student in an Organized Health Care Education/Training Program
DX: J69.0 Pneumonitis due to inhalation of food and vomit (principal); E43 Unspecified severe protein-calorie malnutrition; L03.116 Cellulitis of left lower limb; I12.9 Hypertensive chronic kidney disease with stage 1 through stage 4 chronic kidney disease, or unspecified chronic kidney disease; E11.22 Type 2 diabetes mellitus with diabetic chronic kidney disease; N18.9 Chronic kidney disease, unspecified; L89.899 Pressure ulcer of other site, unspecified stage; D64.9 Anemia, unspecified; I95.9 Hypotension, unspecified; E88.09 Other disorders of plasma-protein metabolism, not elsewhere classified; K74.60 Unspecified cirrhosis of liver; R62.7 Adult failure to thrive; K21.9 Gastro-esophageal reflux disease without esophagitis; Z66 Do not resuscitate; Z51.5 Encounter for palliative care; E03.9 Hypothyroidism, unspecified; Z68.28 Body mass index [BMI] 28.0-28.9, adult; Z74.01 Bed confinement status; Z20.822 Contact with and (suspected) exposure to COVID-19